=== PATIENT | male | born 1980 | race Caucasian/White ===

== ENCOUNTER 2018-02-18 21:38 | Emergency (ER) | payer SELFPAY ==
--- NOTE | 2018-02-18 21:49 | ED Physician Documentation ---
General Adult - HISTORIAN Historian: patient, other (police booking officer) - HPI Stated Complaint: fit for confinement Chief Complaint: General Adult Additional Information: Here ostensibly for fit for confinement, pt says he is suicidal and has been in patient at [facility] [place] twice in the past for SI. Accompanying police booking officer phoned his anaant who told PO that I didn't want to say pt was fit so that the hospital could avoid a charge. Yanggeant also heard to say pt is not suicidal and he knows pt is fit for confinement. Another police booking officer arrives and calls cardiac nurse specialist in front of this provider to explain that pt is not suicidal and just wants to avoid alf. Both officers insist that we are to do 96 hour paperwork. Officer tells cardiac nurse specialist that we are refusing to do 96 hour paperwork. - ROS CONST: other (long hx drug use, lightheaded episodes) - PAST HX Past History: other (see above) Allergies/Adverse Reactions: Allergies Allergy/AdvReac Type Severity Reaction Status Date / Time No Known Allergies Allergy Unverified 02/18/18 21:55 Home Medications: Ambulatory Orders Medication Instructions Recorded Unobtainable [Unobtainable] 02/18/18 - SOCIAL HX Smoking History: cigarettes (2 [employer]) Drug Use: methamphetamines - FAMILY HX Family History: No (no significant) - REVIEWED ASSESSMENTS Nursing Assessment Reviewed: Yes Vitals Reviewed: Yes General Adult Physical Exam - PHYSICAL EXAM GENERAL APPEARANCE: no distress EENT: eye inspection normal, ENT inspection normal NECK: normal inspection RESPIRATORY: no resp distress BACK: normal inspection SKIN: normal color NEURO: motor nml, sensation nml, cognition normal Discharge Clincal Impression: Health examination of prisoner Referrals: Primary Doctor,No [Primary Care Provider] - 2 Days Additional Instructions: Left in custody of police booking officer and found not fit for confinement. Condition: Fair Disposition: 01 HOME, SELF-CARE Decision to Admit: NO Decision Time: 22:00
[2018-02-18 21:54] VITALS: BP 155/95
== END 2018-02-18 22:37 | disposition home or self-care (01) ==
LOC: ED 21:38
DX: Z02.89 Encounter for other administrative examinations (principal)
CPT/HCPCS: 99282